=== PATIENT | male | born 1970 | race Two or more races ===

== ENCOUNTER 2018-04-08 08:41 | Emergency (ER) | payer OTHER ==
[~2018-04-08] VITALS: Ht 193 cm; Wt 102.1 kg
== END 2018-04-08 10:16 | disposition home or self-care (01) ==
LOC: ER 08:41
DX: S92.531A Displaced fracture of distal phalanx of right lesser toe(s), initial encounter for closed fracture (principal); W22.8XXA Striking against or struck by other objects, initial encounter; Y93.89 Activity, other specified; Y92.018 Other place in single-family (private) house as the place of occurrence of the external cause; Y99.8 Other external cause status

== ENCOUNTER 2018-06-24 14:46 | Emergency (ER) | payer OTHER ==
[~2018-06-24] VITALS: Ht 193 cm; Wt 93.0 kg
== END 2018-06-24 18:02 | disposition home or self-care (01) ==
LOC: ER 14:46
DX: R42 Dizziness and giddiness (principal)